=== PATIENT | female | born 1925 | race Caucasian/White ===

== ENCOUNTER 2016-05-15 11:35 | Emergency (ER) | payer MEDICARE ==
--- NOTE | 2016-05-15 13:09 | RAD ---
HISTORY: Left wrist trauma COMPARISONS: None VIEWS: 3, Frontal, lateral, and oblique views of the left wrist FINDINGS: BONE DENSITY: There is diffuse osteopenia. BONES: There is a comminuted fracture of the distal radial metaphysis with articular extension. There is no displaced fracture of the styloid process of the ulna JOINTS: There is osteoarthritis of the scaphoid-trapezium and first CMC articulations ALIGNMENT: There is no dislocation. SOFT TISSUES: Unremarkable. OTHER FINDINGS: None. IMPRESSION: 1. COMMINUTED FRACTURE OF THE DISTAL RADIAL METAPHYSIS WITH ARTICULAR EXTENSION. 2. NONDISPLACED FRACTURE OF THE SOLID PROCESS OF THE ULNA. 3. OSTEOPENIA. 4. OSTEOARTHRITIS.
[2016-05-15 14:03] VITALS: BP 146/84
--- NOTE | 2016-05-15 14:16 | UC ---
Hand/Wrist HPI - HPI Summary HPI Summary: FALL ON OUTSTRETCHED LEFT HAND THIS MORNING ONTO CEMENT. BRUISING SWELLING AND PAIN TO LEFT WRIST. - History Of Current Complaint Chief Complaint: UCUpperExtremity Stated Complaint: FELL WRIST INJURY Time Seen by Provider: 05/15/16 12:39 Hx Obtained From: Patient, Family/Core Driller Helper Hx Last Menstrual Period: Years ago. Onset/Duration: Sudden Onset, Lasting Hours, Still Present Severity Initially: Moderate Severity Currently: Moderate Character Of Pain: Dull, Aching, Stiffness Aggravating Factor(s): Movement, Lifting, Flexion, Extension Alleviating: Rest, Ice Associated Signs And Symptoms: Positive: Swelling, Bruising Related History: Dominant Hand Right - Allergies/Home Medications Allergies/Adverse Reactions: Allergies Allergy/AdvReac Type Severity Reaction Status Date / Time Season/Environmental Allergy Congestion Uncoded 05/15/16 12:32 Allergies PMH/Surg Hx/FS Hx/Imm Hx Previously Healthy: Yes Endocrine History Of: Reports: Dyslipidemia Denies: Diabetes - Borderline, Thyroid Disease, Hyperthyroidism, Hypothyroidism Cardiovascular History Of: Reports: Cardiac Disorders - paroxysmal a fib, pacer , Hypertension, Pacemaker/ICD - 4 YRS AGO, Atrial Fibrillation Denies: Congestive Heart Failure Respiratory History Of: Denies: COPD, Asthma, Bronchitis, Pneumonia, Pulmonary Embolism GI/ History Of: Denies: Gastroesophageal Reflux, Ulcer, Gastrointestinal Bleed, Gall Bladder Disease, Kidney Stones, Diverticulitis, Renal Disease, Urosepsis Neurological History Of: Denies: TIA, CVA, Dementia, Seizures, Migraine Psychological History Of: Denies: Anxiety, Depression, Bipolar Disorder, Schizophrenia, Post Traumatic Stress Disorder Cancer History Of: Reports: Colorectal Cancer Denies: Lung Cancer, Breast Cancer, Prostate Cancer, Cervical Cancer Other History Of: Anticoagulant Therapy - aspirin Negative For: HIV, Hepatitis B, Hepatitis C - Surgical History Surgical History: None Surgery Procedure, Year, and Place: COLON RESECTION & [id number] , HYSTERECTOMY , BACK SURG, ILEOSTOMY/reversal. R ankle surgery, L knee meniscus surgery. - Family History Known Family History: Positive: Cardiac Disease, Renal Disease - Social History Occupation: Retired Lives: With Family Alcohol Use: Rare Substance Use Type: None Smoking Status (MU): Never Smoked Tobacco - Immunization History Most Recent Influenza Vaccination: 2015/2016 season Review of Systems Constitutional: Negative Skin: Bruising Eyes: Negative ENT: Negative Respiratory: Negative Cardiovascular: Negative Gastrointestinal: Negative Genitourinary: Negative Motor: Negative Musculoskeletal: Arthralgia, Decreased ROM - LEFT WRIST, Edema - LEFT WRIST, Myalgia - LEFT WRIST Neurological: Negative Psychological: Negative All Other Systems Reviewed And Are Negative: Yes Physical Exam Triage Information Reviewed: Yes Appearance: Well-Appearing, Well-Nourished, Pain Distress - LEFT WRIST Vital Signs: Initial Vital Signs Temp 98.2 F 05/15/16 12:19 Pulse 65 05/15/16 12:19 Resp 18 05/15/16 12:19 BP 201/92 05/15/16 12:19 Pulse Ox 100 05/15/16 12:19 Vital Signs Reviewed: Yes Eye Exam: Normal Eyes: Positive: Conjunctiva Clear ENT Exam: Normal ENT: Positive: Normal ENT inspection, Hearing grossly normal, Pharynx normal, TMs normal Dental Exam: Normal Neck exam: Normal Neck: Positive: Supple, Nontender, No Lymphadenopathy Respiratory Exam: Normal Respiratory: Positive: Chest non-tender, Lungs clear, Normal breath sounds, No respiratory distress, No accessory muscle use Cardiovascular Exam: Normal Cardiovascular: Positive: RRR, No Murmur, Pulses Normal, Brisk Capillary Refill Abdominal Exam: Normal Abdomen Description: Positive: Nontender, No Organomegaly Musculoskeletal: Positive: Strength Limited @ - LEFT WRIST, ROM Limited @ - LEFT WRIST, Edema @ - LEFT WRIST Neurological Exam: Normal Psychological Exam: Normal Psychological: Positive: Normal Response To Family Skin Exam: Normal Procedures - Splinting Hand-Made Type: orthoglass - PROTECTIVE GAUZE, ORTHOGLASS, DIPIKA WRAP, COBAN Splint: sugar-tong Pre-Proc Neuro Vasc Exam: normal Post-Proc Neuro Vasc Exam: normal Hand/Wrist Course/Dx - Differential Dx/Diagnosis Differential Diagnosis/HQI/PQRI: Fracture, Sprain, Strain Provider Diagnoses: CLOSED COMMINUTED FRACTURE OF LEFT DISTA RADIAL METAPHYSIS WITH ARTICULAR EXTENSION; NONDISPLACED FRACTURE OF SOLID PROCESS OF ULNA; OSTEOPENIA; OSTEOARTHRITIS. HYPERTENSION - Physician Notifications Discussed Patient Care With: UJANA DOLL PA-C ([facility] ) Time Discussed With Above Provider: 13:40 Instructed by Provider To: Have Pt Call For Appt. Discharge - Discharge Plan Condition: Stable Disposition: HOME Patient Education Materials: Wrist Fracture in Adults (ED), Hypertension (ED) Referrals: Micha Donald MD [Medical Doctor] - Mary Lancaster MD [Primary Care Provider] -
== END 2016-05-15 14:11 | disposition home or self-care (01) ==
LOC: UCEAST 11:35
DX: S52.502A Unspecified fracture of the lower end of left radius, initial encounter for closed fracture (principal); S52.602A Unspecified fracture of lower end of left ulna, initial encounter for closed fracture; M85.80 Other specified disorders of bone density and structure, unspecified site; M19.90 Unspecified osteoarthritis, unspecified site; I10 Essential (primary) hypertension; Z95.0 Presence of cardiac pacemaker
CPT/HCPCS: 99211; G0463

== ENCOUNTER 2016-08-15 08:33 | Day surgery (SDC) | payer MEDICARE ==
--- NOTE | 2016-08-12 20:57 | HP ---
PREOPERATIVE HISTORY AND PHYSICAL EXAM: DATE OF SURGERY/ADMISSION: 08/15/16 [facility] ATTENDING SURGEON: Savana Viveros MD. (DICTATED BY CHEMO BANGURA) PROCEDURE: Left wrist carpal tunnel release. DATE OF OFFICE VISIT/ENCOUNTER: 08/11/16 LEACHER: Dr. Mcconnell. CHIEF COMPLAINT: Numbness and tingling in left hand. HISTORY OF PRESENT ILLNESS: This is an 89-year-old female who sustained fracture of her left wrist in April 2016 for which she was treated in a cast. Prior to that, she was having symptoms of carpal tunnel syndrome in both hands. After she broke her left wrist, the carpal tunnel syndrome symptoms in her left wrist became worse. She complains of numbness and tingling in her hands and feels a lot of pain especially when she sleeps at night. She has to hang her hand over the edge of the bed when it is painful and it does resolve some of the pain. It causes her fingers to be very swollen and she gets stiffness in the fingers. She continues to have persistent symptoms, and after discussion with and evaluation by Dr. Viveros, she has decided to proceed with surgical intervention at this time in the form of a left wrist carpal tunnel release. The patient has known atrial fibrillation and pacemaker and is followed by Dr. Mcconnell regularly. She saw Dr. Mcconnell approximately 6 weeks ago and none of her medications were changed. Cardiac oneill, she is doing well lately. PAST MEDICAL HISTORY: 1. Atrial fibrillation. 2. Mitral valve disease. 3. Tricuspid regurgitation. 4. Aortic insufficiency. 5. Hypertension. 6. Hyperlipidemia. 7. Back pain. 8. Peripheral vascular disease. 9. History of colorectal cancer. 10. Macular degeneration. 11. Osteoporosis. 12. Rosacea. 13. Renal insufficiency stage 3, which has been stable. PAST SURGICAL HISTORY: 1. Pacemaker implantation, original implant was in 2008 and then changed in 2016. 2. Colorectal surgery for colon cancer 6 years ago. 3. Back surgery, laminectomies at sacral level. 4. Right ankle surgery. 5. D and Cs. 6. Hysterectomy. 7. Breast lumpectomy. 8. Knee surgery, meniscal repair. CURRENT MEDICATIONS: 1. Aspirin 81 mg daily. 2. Calcium 1 tab daily. 3. Flaxseed oil 2 daily. 4. Eylea shots in eyes q.6 weeks. 5. Lutein 1 cap daily. 6. Metoprolol tartrate 25 mg 2 tablets in the morning and 1 at night. 7. Multivitamin. 8. Pravastatin sodium 40 mg. 9. Vitamin C. 10. Vitamin D 2000 units daily. ALLERGIES: No known drug allergies. FAMILY MEDICAL HISTORY: Diabetes, stomach cancer, hypertension. SOCIAL HISTORY: The patient is retired. She denies tobacco use and recreational drug use. She does admit to alcohol use on occasion. REVIEW OF SYSTEMS: General: Negative for fevers, chills, or night sweats. No known anesthesia problems in the past. HEENT: Positive for occasional balance issues. Negative for headache, lightheadedness, or syncopal episodes. Integumentary: Positive for rosacea. Negative for current lesions or open wounds. Cardiothoracic: Positive for hypertension and atrial fibrillation. Pulmonary: Negative for shortness of breath with exertion, chronic cough, or COPD. GI: Negative for nausea, vomiting, diarrhea, constipation, or GERD. : Negative for nocturia, urinary frequency, urgency, or history of UTIs. Musculoskeletal: Positive for current complaint along with history of left wrist fracture. Neurological: Negative for history of seizure, stroke, or epilepsy. Endocrine: Negative for diabetes or thyroid issues. Hematologic: Negative for easy bruising, anemia, excessive bleeding, or history of DVT. Infectious Disease: Negative for history of MRSA, hepatitis C, or HIV. PHYSICAL EXAMINATION GENERAL: Well-developed, well-nourished, 89-year-old female in no acute distress. VITAL SIGNS: Height 5 feet 2 inches, weight 135 pounds, pulse rate 72, blood pressure 123/84. HEENT: Normocephalic, atraumatic. Pupils are equal, round, reactive to light and accommodation. Extraocular movements are intact. NECK: Supple. No palpable lymph nodes. Throat is clear. PULMONARY: Lungs are clear to auscultation bilaterally. No wheezes, rales, or rhonchi. CARDIOVASCULAR: Regular rate and rhythm. S1, S2. No murmurs, rubs, or gallops. No edema. ABDOMEN: Positive bowel sounds. Soft, nontender. NEUROLOGICAL: Alert and oriented x3. Cranial nerves II through XII are intact. Sensation is intact to light touch. PERIPHERAL VASCULAR: 2+ radial and ulnar pulses. Negative Jason test. MUSCULOSKELETAL: On exam of her left wrist, there is some obvious mild deformity where the fracture was, she has prominence of her distal ulna, but she has good range of motion of her wrist with a flexion and extension arc of 120 degrees. She can make a fist, but her fingers are stiff and she cannot squeeze tightly. She can extend her fingers all the way. She has decreased sensation in the median nerve distribution. Normal sensation in ulnar nerve distribution. She has a marked thenar wasting. IMPRESSION: Left carpal tunnel syndrome, worse after left wrist fracture. PLAN: The patient is scheduled to undergo left wrist carpal tunnel release with Dr. Viveros on 08/15/16. She will return to the office 10 to 14 days postop for followup and suture removal. She is planning on using [id number] medications for postoperative pain management. CHEMO BANGURA [id number]/[facility] #: [id number] [place]
[~2016-08-15 08:33] MED LIST: Buffered Lidocaine 0.9% SYRIN* 5 ML/SYR SYRINGE INTRADERM ONE
[2016-08-15] MEDS ORDERED: Metoprolol Tartrate TAB* 25 MG ONE (09:36)
[2016-08-15] MEDS ORDERED: Metoprolol Tartrate TAB* 50 mg PO ONE (09:57)
[2016-08-15] MEDS ORDERED: Lidocaine 1% INJ* 10 MG/ML 30 ML SDV ONE (09:57)
[2016-08-15] MEDS ORDERED: Lidocaine 2% PF * 5 ML VIAL ONE (10:39)
[2016-08-15] MEDS ORDERED: Propofol* 10 MG/ML 20 ML BTL IV PUSH ONE (10:39)
[2016-08-15] MEDS ORDERED: fentaNYL* 50 MCG/ML 2 ML VIAL (100 MCG VIAL) ONE (10:39)
[2016-08-15 10:49] VITALS: BP 141/65
--- NOTE | 2016-08-16 06:58 | OP ---
DATE OF OPERATION: 08/15/16 [facility] DATE OF : [birth year]04[birth year]27 SURGEON: Dr. Viveros. HERITAGE CONSULTANT: CHEMO Valencia ANESTHESIOLOGIST: Darren Connor MD ANESTHESIA: Local MAC PRE-OP DIAGNOSIS: Left carpal tunnel syndrome. POST-OP DIAGNOSIS: Left carpal tunnel syndrome. OPERATIVE PROCEDURE: Left carpal tunnel release. ESTIMATED BLOOD LOSS: Zero. TOURNIQUET TIME: 5 minutes. INDICATIONS FOR PROCEDURE: Kirti is an 89-year-old female who suffered a distal radius fracture, this has healed. Prior to the fracture, she had symptoms of numbness and tingling in her left hand, but that got worse after the fracture. She presents now for left carpal tunnel release. DESCRIPTION OF PROCEDURE: The patient was brought to the operating room, was given a sedation anesthetic and a local infiltration of 10 cc of 1% plain lidocaine in the palm of her left hand. The skin of her left hand and forearm were prepped and draped in the usual sterile fashion. The hand and forearm were exsanguinated and the tourniquet elevated to 250 mmHg. A longitudinal incision was made in the palm in line with the ring finger, dissected through the subcutaneous sharply with a knife down to the transverse carpal ligament. The ligament was divided sharply with a knife and then more proximally with the scissors. The nerve was dissected free from the surrounding tissue and there was an area of significant compression and tenosynovitis. The wound was copiously irrigated with saline. The skin edges were reapproximated with 4-0 nylon suture. The wound was dressed with Xeroform, 4x4, Webril, and an Anoop wrap. The patient tolerated the procedure well and was brought to the recovery room in good condition. [id number]/[facility] #: [id number] [facility]
== END 2016-08-15 11:04 | disposition home or self-care (01) ==
LOC: OREAST 08:33
PROVIDERS: ATTEND Orthopaedic Surgery
DX: G56.02 Carpal tunnel syndrome, left upper limb (principal); I48.91 Unspecified atrial fibrillation; Z95.0 Presence of cardiac pacemaker; Z87.81 Personal history of (healed) traumatic fracture
CPT/HCPCS: J2001; J2704; J3010

== ENCOUNTER 2016-09-26 11:51 | Day surgery (SDC) | payer MEDICARE ==
--- NOTE | 2016-09-18 15:56 | HP ---
PREOPERATIVE HISTORY AND PHYSICAL: DATE OF SURGERY/ADMISSION: 09/26/16 - [facility] DATE OF OFFICE VISIT/ENCOUNTER: 09/18/16 ATTENDING SURGEON: Savana Viveros MD * (DICTATED BY CHEMO BANGURA) MANAGER ENGLISH: Dr. Mcconnell. PROCEDURE: Right carpal tunnel release. CHIEF COMPLAINT: Numbness and tingling, right hand. HISTORY OF PRESENT ILLNESS: This is an 89-year-old female, who has had persistent symptoms of carpal tunnel in her right hand for several months now. She complains of numbness and tingling in the median nerve distribution in her right hand and she gets a lot of pain especially when she sleeps at night and she is awakened by her symptoms. She has to hang her hand over the edge of the bed when it is painful and try to shake the numbness and tingling out of her hand. She recently underwent a left wrist carpal tunnel release with Dr. Viveros and has done well with that. She is interested in proceeding with the carpal tunnel release on the right. The patient has known atrial fibrillation and a pacemaker and is followed by Dr. Mcconnell regularly. She saw Dr. Mcconnell approximately 7 weeks ago and none of her medications were changed. Cardiac oneill, she is doing well lately. PAST MEDICAL HISTORY: 1. Atrial fibrillation. 2. Mitral valve disease. 3. Tricuspid regurgitation. 4. Aortic insufficiency. 5. Hypertension. 6. Hyperlipidemia. 7. Back pain. 8. Peripheral vascular disease. 9. History of colorectal cancer. 10. Macular degeneration. 11. Osteoporosis. 12. Rosacea. 13. Renal insufficiency, stage 3, which has been stable. PAST SURGICAL HISTORY: 1. Pacemaker implantation, original implant was in 2008 and then it was changed in 2016. 2. Colorectal surgery for colon cancer 6 years ago. 3. Back surgery, laminectomies at the sacral level. 4. Right ankle surgery. 5. D and C. 6. Hysterectomy. 7. Breast lumpectomy. 8. Knee surgery, meniscal repair. 9. Left carpal tunnel release. CURRENT MEDICATIONS: 1. Aspirin 81 mg daily. 2. Calcium 1 tab daily. 3. Flax seed oil 2 tabs daily. 4. Eylea shots bilateral eyes q.6 weeks. 5. Lutein 1 cap daily. 6. Metoprolol tartrate 25 mg 2 tabs in the morning and 1 at night. 7. Multivitamin daily. 8. Pravastatin sodium 40 mg daily. 9. Vitamin C. 10. Vitamin D 2000 units daily. ALLERGIES: No known drug allergies. FAMILY MEDICAL HISTORY: Diabetes, stomach cancer, and hypertension. SOCIAL HISTORY: The patient is retired. She denies tobacco use and recreational drug use. She does admit to alcohol use on occasion. REVIEW OF SYSTEMS: General: Negative for fevers, chills, or night sweats. No known anesthesia problems in the past. HEENT: Positive for occasional balance issues, negative for headache, lightheadedness, or syncopal episodes. Integumentary: Positive for rosacea. Negative for current lesions or open wounds. Cardiothoracic: Positive for hypertension and atrial fibrillation. Pulmonary: Negative for shortness of breath with exertion, chronic cough, or COPD. GI: Negative for nausea, vomiting, diarrhea, constipation, or GERD. : Negative for nocturia, urinary frequency, urgency, or history of UTIs. Musculoskeletal: Positive for current complaint. Positive for history of left wrist fracture and occasional back pain. Neurological: Negative for history of seizure, stroke, or epilepsy. Endocrine: Negative for diabetes or thyroid issues. Hematologic: Negative for easy bruising, anemia, excessive bleeding, or history of DVT. Infectious Disease: Negative for history of MRSA, hepatitis C, or HIV. PHYSICAL EXAMINATION GENERAL: Well-developed, well-nourished, 89-year-old female in no acute distress. VITAL SIGNS: Height 5 feet 2 inches, weight 133 pounds, pulse rate 70, blood pressure 122/76. HEENT: Normocephalic, atraumatic. Pupils are equal, round, and reactive to light and accommodation. Extraocular movements are intact. NECK: Supple. No palpable lymph nodes. Throat is clear. PULMONARY: Lungs are clear to auscultation bilaterally. No wheezes, rales, or rhonchi. CARDIOVASCULAR: Regular rate and rhythm. S1, S2. No murmurs, rubs, or gallops. No edema. ABDOMEN: Positive bowel sounds, soft, nontender. NEUROLOGICAL: Alert and oriented x3. Cranial nerves II through XII are intact. Sensation is intact to light touch. PERIPHERAL VASCULAR: 2+ radial and ulnar nerve pulses. Negative Jason test. MUSCULOSKELETAL: On exam of her right upper extremity, wrist and hand, she has visible thenar wasting and decreased strength with thumb abduction. She can make a fist, but her fingers are stiff and she has trouble squeezing tightly. She has slight decreased sensation to light touch in the median nerve distribution. She has a negative Tinel's sign, but positive Phalen's test. IMPRESSION: Right carpal tunnel syndrome. PLAN: The patient is scheduled to undergo a right carpal tunnel release with Dr. Viveros on 09/26/16. She will return to the office 10 to 14 days postop for followup and suture removal. She will plan on using [id number] medications for postoperative pain management. CHEMO BANGURA [id number]/[facility] #: [id number] [facility]
[~2016-09-26 11:51] MED LIST changes: +Famotidine IV* 10 MG/ML 2 ML (20 mg) IV ONE; +Famotidine IV* 10 MG/ML 2 ML (20 mg) ONE; +HYDROcodone/ACETAMIN 5-325 MG* 1 TAB PO PRN; +Metoclopramide TAB* 10 MG ONE; +Metoclopramide TAB* 10 MG PO ONE; +Ondansetron INJ* 2 MG/ML VIAL IV PRN; +fentaNYL* 50 MCG/ML 2 ML VIAL (100 MCG VIAL) IV PRN
[2016-09-26] MEDS ORDERED: Propofol* 10 MG/ML 20 ML BTL IV PUSH ONE (12:12)
[2016-09-26] MEDS ORDERED: Ketorolac INJ* 30 MG/ML 1 ML VIAL ONE (12:12)
[2016-09-26] MEDS ORDERED: Ondansetron INJ* 2 MG/ML VIAL ONE (12:12)
[2016-09-26] MEDS ORDERED: Lidocaine 2% PF * 5 ML VIAL ONE (12:12)
[2016-09-26] MEDS ORDERED: Dexamethasone IV* 4 MG/ML 1 ML (4 MG) ONE (12:12)
[2016-09-26] MEDS ORDERED: Midazolam* 1 MG/ML 5 ML VIAL (5 MG) ONE (12:13)
[2016-09-26] MEDS ORDERED: fentaNYL* 50 MCG/ML 2 ML VIAL (100 MCG VIAL) ONE (12:13)
[2016-09-26] MEDS ORDERED: Lidocaine 1% INJ* 10 MG/ML 30 ML SDV ONE (12:30)
[2016-09-26 13:12] VITALS: BP 106/59
--- NOTE | 2016-09-27 02:53 | OP ---
DATE OF OPERATION: 09/26/16 [facility] DATE OF : [birth year]04[birth year] SURGEON: Savana Viveros MD ATM MANAGER: CHEMO Valencia ANESTHESIOLOGIST: Tigre Jo MD ANESTHESIA: Local MAC. PRE-OP DIAGNOSIS: Right carpal tunnel syndrome. POST-OP DIAGNOSIS: Right carpal tunnel syndrome. OPERATIVE PROCEDURE: Right carpal tunnel release. ESTIMATED BLOOD LOSS: Zero. TOURNIQUET TIME: 5 minutes. INDICATIONS: Kirti is an 89-year-old female with numbness and tingling in the median nerve distribution of her right hand. She presents for right carpal tunnel release. DESCRIPTION OF PROCEDURE: The patient was brought to the operating room, was given a sedation anesthetic and a local infiltration with 10 cc of 1% plain lidocaine in the palm of her right hand. The skin of her right hand and forearm was prepped and draped in usual sterile fashion. The hand and forearm was exsanguinated and tourniquet elevate to 250 mmHg. A longitudinal incision was made in the palm in line with the ring finger, we dissected through the subcutaneous tissue down to the transverse carpal ligament. The ligament was divided sharply with a knife and then more proximally with the scissors. The nerve was dissected free from the surrounding tissue, and there was an area of moderate compression at the mid portion of the ligament. The wound was irrigated and skin edges were reapproximated with 4-0 nylon suture. The wound was dressed with Xeroform, 4x4, Webril and an Anoop wrap. The patient tolerated the procedure well, was brought to the recovery room in good condition. [id number]/[facility] #: [id number] [facility]
== END 2016-09-26 13:37 | disposition home or self-care (01) ==
LOC: OREAST 11:51
PROVIDERS: ATTEND Orthopaedic Surgery
DX: G56.01 Carpal tunnel syndrome, right upper limb (principal); I48.91 Unspecified atrial fibrillation; Z95.0 Presence of cardiac pacemaker; N18.3 Chronic kidney disease, stage 3 (moderate); Z79.82 Long term (current) use of aspirin; I34.8 Other nonrheumatic mitral valve disorders; I35.1 Nonrheumatic aortic (valve) insufficiency; I12.9 Hypertensive chronic kidney disease with stage 1 through stage 4 chronic kidney disease, or unspecified chronic kidney disease; R73.9 Hyperglycemia, unspecified
CPT/HCPCS: A9270-GY; J1100; J1885; J2001; J2250; J2405; J2704; J3010

== ENCOUNTER 2017-07-23 12:30 | Emergency (ER) | payer MEDICARE ==
[2017-07-23 13:49] VITALS: BP 165/76
--- NOTE | 2017-07-23 14:32 | UC ---
Ear Complaint HPI - HPI Summary HPI Summary: 89 year old female here with right ear wax plug. Reports symptoms started 3 weeks ago, worsened. She tried oil and warm water, and despite all these attempts, her ear is clogged prompting her to come to the ED. - History of Current Complaint Chief Complaint: UCEar Stated Complaint: PLUGGED EAR Time Seen by Provider: 07/23/17 13:42 Hx Last Menstrual Period: Years ago. Onset/Duration: Gradual Onset Pain Intensity: 0 Aggravating Factors: Nothing Alleviating Factors: Nothing Associated Signs/Symptoms: Positive: Hearing Loss - Allergies/Home Medications Allergies/Adverse Reactions: Allergies Allergy/AdvReac Type Severity Reaction Status Date / Time Season/Environmental Allergy Congestion Uncoded 07/23/17 13:43 Allergies PMH/Surg Hx/FS Hx/Imm Hx Previously Healthy: No Other History Of: Anticoagulant Therapy - aspirin Negative For: HIV, Hepatitis B, Hepatitis C - Surgical History Surgical History: Yes Surgery Procedure, Year, and Place: COLON RESECTION & [id number] ,D&C's, HYSTERECTOMY, BACK SURG-laminectomies at sacral level. ILEOSTOMY/reversal, right breast lumpectomy. R ankle surgery, L knee meniscus surgery.. right eye cataract surgery, pacemaker placed 2008 and changed in 2015 - Family History Known Family History: Positive: Cardiac Disease, Renal Disease - Social History Alcohol Use: Occasionally Substance Use Type: None Smoking Status (MU): Never Smoked Tobacco - Immunization History Most Recent Influenza Vaccination: season Review of Systems Constitutional: Negative Skin: Negative Eyes: Negative ENT: Ear Ache Respiratory: Negative Cardiovascular: Negative Gastrointestinal: Negative Genitourinary: Negative Motor: Negative Neurovascular: Negative Musculoskeletal: Negative Neurological: Negative Psychological: Negative All Other Systems Reviewed And Are Negative: Yes Physical Exam Triage Information Reviewed: Yes Vital Signs: Initial Vital Signs Temp 36.6 C 07/23/17 13:47 Pulse 67 07/23/17 13:47 Resp 14 07/23/17 13:47 BP 165/76 07/23/17 13:47 Pulse Ox 98 07/23/17 13:47 ENT: Positive: Other - bilateral was plug of her Neck exam: Normal Respiratory Exam: Normal Cardiovascular Exam: Normal Musculoskeletal Exam: Normal Ear Complaint Course/Dx - Differential Dx/Diagnosis Differential Diagnosis/HQI/PQRI: Cerumen Impaction, Mastoiditis, Otitis Media, URI Provider Diagnoses: Cerumen impaction. S/p irrigation here Discharge - Sign-Out/Discharge Documenting (check all that apply): Discharge/Admit/Transfer - Discharge Plan Condition: Good Disposition: HOME Patient Education Materials: Cerumen Impaction (ED) Referrals: Mary Lancaster MD [Primary Care Provider] - - Billing Disposition and Condition Condition: GOOD Disposition: HOME
== END 2017-07-23 14:35 | disposition home or self-care (01) ==
LOC: UCEAST 12:30
DX: H61.23 Impacted cerumen, bilateral (principal); Z95.0 Presence of cardiac pacemaker; Z79.82 Long term (current) use of aspirin; Z82.49 Family history of ischemic heart disease and other diseases of the circulatory system; Z84.1 Family history of disorders of kidney and ureter
CPT/HCPCS: 99211; G0463